=== PATIENT | female | born 1985 | race African-American/Black ===

== ENCOUNTER 2024-02-09 15:32 | Emergency (ER) | payer OTHER ==
[~2024-02-09] VITALS: Ht 172.7 cm; Wt 98.0 kg
[2024-02-09 15:33] VITALS: BP 122/76; PULSE 76; RESP 16; O2SAT 98
[2024-02-09 16:32] LABS: HEMATOCRIT. 41.2 % (36.0-48.0); HEMOGLOBIN. 13.3 g/dL (12.0-16.0); MEAN CORPUSCULAR HGB CONC 32.4 g/dL (31.0-37.0); MEAN CORPUSCULAR VOLUME 89.4 fL (81.0-99.0); MEAN PLATELET VOLUME 8.8 fl (7.4-10.4); PLATELET 292 x1000/uL (130-400); RED BLOOD CELL COUNT 4.61 mill/uL (4.2-5.4); RED CELL DISTRIBUTION WIDTH 13.7 % (11.6-14.6); WHITE BLOOD COUNT 6.2 x1000/uL (4.5-11.0)
[2024-02-09 16:34] LABS: CHLORIDE 107 mEq/L (98-107); SODIUM 139 mEq/L (136-145)
[2024-02-09 16:35] LABS: CALCIUM 9.3 mg/dL (8.7-10.4); CARBON DIOXIDE 29 mEq/L (21-32)
[2024-02-09 16:39] LABS: DIFFERENTIAL COMMENT 1
[2024-02-09 16:40] LABS: CREATININE 0.8 mg/dL (0.6-1.0); GLUCOSE 90 mg/dL (70-105); UREA NITROGEN BLOOD 8 mg/dL (9-23)
[2024-02-09 16:41] LABS: TROPONIN I HIGH SENSITIVITY 20 ng/L (3.0-34)
[2024-02-09 16:43] LABS: B-HCG QUANTITATIVE < 1 mIU/mL (<3)
[2024-02-09 17:18] VITALS: TEMP 98.6
[2024-02-09] MEDS: ACETAMINOPHEN 325MG TABLET PO NR (17:18)
[2024-02-09 18:11] LABS: CLARITY URINE CLOUDY (CLEAR); COLOR URINE ORANGE (YELLOW); GLUCOSE URINE NEGATIVE (NEGATIVE); KETONES URINE NEGATIVE (NEGATIVE); LEUKOCYTE ESTERASE URINE 1+ (NEGATIVE); NITRITE URINE NEGATIVE (NEGATIVE); OCCULT BLOOD URINE 3+ (NEGATIVE); PH URINE 5.5 (4.5-8.0); PROTEIN URINE 1+ (NEGATIVE); SPECIFIC GRAVITY URINE 1.015 (1.005-1.030); UROBILINOGEN URINE 0.2 E.U./dL (0.2-1.0)
[2024-02-09] MEDS ORDERED: NITR100C MT (18:29)
[2024-02-09] MEDS ORDERED: ACET-2708 PO (18:29)
[2024-02-09 18:32] LABS: BACTERIA URINE 2+; SQUAMOUS EPITHELIAL CELL URINE 1+ /lpf (RARE/1+)
[2024-02-09 19:14] LABS: PLATELET ESTIMATE NORMAL
== END 2024-02-09 18:58 | disposition home or self-care (01) ==
LOC: ER 15:32
DX: R60.9 Edema, unspecified (principal); N93.8 Other specified abnormal uterine and vaginal bleeding; R07.9 Chest pain, unspecified; E11.9 Type 2 diabetes mellitus without complications; I10 Essential (primary) hypertension; Z86.73 Personal history of transient ischemic attack (TIA), and cerebral infarction without residual deficits
CPT/HCPCS: 36415; 71045; 76856; 80048; 81003; 83880; 84484; 84702; 85025; 93005; 93970; 99285

== ENCOUNTER 2024-02-23 16:13 | Emergency (ER) | payer OTHER ==
[~2024-02-23] VITALS: Ht 175.3 cm; Wt 117.0 kg
[~2024-02-23 16:13] MED LIST: ACET-2708 PO; NITR100C MT
[2024-02-23 16:38] VITALS: O2SAT 96
[2024-02-23 17:43] LABS: CHLORIDE 104 mEq/L (98-107); SODIUM 138 mEq/L (136-145)
[2024-02-23 17:44] LABS: CARBON DIOXIDE 30 mEq/L (21-32)
[2024-02-23 17:45] LABS: CALCIUM 9.4 mg/dL (8.7-10.4)
[2024-02-23 17:48] LABS: DIFFERENTIAL COMMENT 1; HEMATOCRIT. 41.6 % (36.0-48.0); HEMOGLOBIN. 13.6 g/dL (12.0-16.0); MEAN CORPUSCULAR HEMOGLOBIN 29.3 pg (28.0-32.0); MEAN CORPUSCULAR HGB CONC 32.7 g/dL (31.0-37.0); MEAN CORPUSCULAR VOLUME 89.7 fL (81.0-99.0); MEAN PLATELET VOLUME 9.5 fl (7.4-10.4); PLATELET 262 x1000/uL (130-400); RED BLOOD CELL COUNT 4.63 mill/uL (4.2-5.4); RED CELL DISTRIBUTION WIDTH 13.3 % (11.6-14.6); WHITE BLOOD COUNT 6.7 x1000/uL (4.5-11.0)
[2024-02-23 17:49] LABS: CREATININE 0.8 mg/dL (0.6-1.0)
[2024-02-23 17:50] LABS: D-DIMER 0.43 mg/L FEU (<0.50); GLUCOSE 94 mg/dL (70-105); INR 0.9; PROTHROMBIN TIME 10.3 sec (9.6-11.0); UREA NITROGEN BLOOD 10 mg/dL (9-23)
[2024-02-23 17:52] LABS: ALANINE AMINOTRANSFERASE 27 IU/L (10-49); ASPARTATE AMINOTRANSFERASE 26 IU/L (<34); TROPONIN I HIGH SENSITIVITY 27 ng/L (3.0-34)
[2024-02-23 17:53] LABS: ALBUMIN 4.3 g/dL (3.2-4.8); BILIRUBIN DIRECT < 0.1 mg/dL (<=3.0); BILIRUBIN TOTAL 0.2 mg/dL (0.1-1.0); HCG SCREEN NEGATIVE; PROTEIN TOTAL 7.8 g/dL (6.0-8.3)
[2024-02-23 18:54] LABS: PLATELET ESTIMATE NORMAL
[2024-02-23] MEDS ORDERED: ACETAMINOPHEN 325MG TABLET PO ONE (19:45)
[2024-02-23] MEDS: ACETAMINOPHEN 325MG TABLET PO NR (23:41)
[2024-02-23 23:47] LABS: TROPONIN I HIGH SENSITIVITY 30 ng/L (3.0-34)
[2024-02-24] MEDS ORDERED: NAPR-1176 MT (01:21)
[2024-02-24] MEDS ORDERED: LIDO700A15 TP (01:21)
[2024-02-24 01:45] VITALS: BP 142/81; PULSE 82; RESP 16; TEMP 36.66960; O2SAT 97
== END 2024-02-24 01:53 | disposition home or self-care (01) ==
LOC: ER 16:13
DX: M79.662 Pain in left lower leg (principal); M25.512 Pain in left shoulder; I10 Essential (primary) hypertension; Z86.73 Personal history of transient ischemic attack (TIA), and cerebral infarction without residual deficits; Z88.0 Allergy status to penicillin; Z98.890 Other specified postprocedural states
CPT/HCPCS: 36415; 71045; 73030; 80048; 80076; 83880; 84484; 84703; 85025; 85379; 93005; 93971; 99285; A4565

== ENCOUNTER 2024-03-11 16:48 | Emergency (ER) | payer OTHER ==
[~2024-03-11] VITALS: Ht 162.6 cm; Wt 100.0 kg
[~2024-03-11 16:48] MED LIST changes: +LIDO700A15 TP; +NAPR-1176 MT
[2024-03-11 16:49] VITALS: O2SAT 95
[2024-03-11 17:00] VITALS: TEMP 36.89184
[2024-03-11 18:20] LABS: BASOPHILS % 1.3 % (0.0-2.0); EOSINOPHILS % 3.3 % (0.0-5.0); HEMATOCRIT. 39.9 % (36.0-48.0); HEMOGLOBIN. 13.6 g/dL (12.0-16.0); LYMPHOCYTES % 30.4 % (20.0-50.0); MEAN CORPUSCULAR HEMOGLOBIN 30.1 pg (28.0-32.0); MEAN CORPUSCULAR HGB CONC 34.1 g/dL (31.0-37.0); MEAN CORPUSCULAR VOLUME 88.4 fL (81.0-99.0); MONOCYTES % 12.4 % (2.0-8.0); NEUTROPHILS % 52.6 % (40.0-76.0); PLATELET 288 x1000/uL (130-400); RED BLOOD CELL COUNT 4.51 mill/uL (4.2-5.4); RED CELL DISTRIBUTION WIDTH 13.8 % (11.6-14.6); WHITE BLOOD COUNT 6.5 x1000/uL (4.5-11.0)
[2024-03-11 18:25] LABS: CHLORIDE 108 mEq/L (98-107); POTASSIUM 3.9 mEq/L (3.5-5.1); SODIUM 139 mEq/L (136-145)
[2024-03-11 18:26] LABS: CALCIUM 9.4 mg/dL (8.7-10.4); CARBON DIOXIDE 27 mEq/L (21-32)
[2024-03-11 18:31] LABS: CREATININE 0.8 mg/dL (0.6-1.0); GLUCOSE 88 mg/dL (70-105); UREA NITROGEN BLOOD 9 mg/dL (9-23)
[2024-03-11 18:32] LABS: TROPONIN I HIGH SENSITIVITY 28 ng/L (3.0-34)
[2024-03-11 19:08] VITALS: TEMP 98.4
[2024-03-11 21:12] LABS: HCG SCREEN NEGATIVE
[2024-03-11 22:09] VITALS: BP 142/82; PULSE 78; RESP 20; O2SAT 98
== END 2024-03-11 22:05 | disposition home or self-care (01) ==
LOC: ER 16:48
DX: R07.89 Other chest pain (principal); I10 Essential (primary) hypertension; Z88.0 Allergy status to penicillin; Z86.73 Personal history of transient ischemic attack (TIA), and cerebral infarction without residual deficits
CPT/HCPCS: 80048; 84703; 83880; 85025; 85379; 84484; 36415; 93971; 71045; 93005; 99285; Z7610

== ENCOUNTER 2024-04-02 19:21 | Emergency (ER) | payer OTHER ==
[~2024-04-02] VITALS: Ht 175.3 cm; Wt 118.2 kg
[2024-04-02 20:05] VITALS: O2SAT 99
[2024-04-02] MEDS: KETOROLAC 15MG/ML VIAL IM ONE (21:21)
[2024-04-02] MEDS: LIDOCAINE 5% PATCH TOP SCH (21:21)
[2024-04-02 21:27] VITALS: BP 123/68; PULSE 80; RESP 18; TEMP 37.00296; O2SAT 99
== END 2024-04-02 21:28 | disposition home or self-care (01) ==
LOC: ER 19:21
DX: R51.9 Headache, unspecified (principal); M54.2 Cervicalgia; R68.84 Jaw pain; I10 Essential (primary) hypertension; Z79.1 Long term (current) use of non-steroidal anti-inflammatories (NSAID); Z86.73 Personal history of transient ischemic attack (TIA), and cerebral infarction without residual deficits; Z88.0 Allergy status to penicillin; Z79.899 Other long term (current) drug therapy; W06.XXXA Fall from bed, initial encounter; Y93.89 Activity, other specified; Y92.89 Other specified places as the place of occurrence of the external cause; Y99.8 Other external cause status
CPT/HCPCS: 99283; 81025; 96372; J1885